=== PATIENT | male | born 1955 | race Caucasian/White ===

== ENCOUNTER → 2016-10-21 | Outpatient (CLI) | payer OTHER ==
--- NOTE | 2016-10-21 07:59 | US ---
EXAMINATION TYPE: US abdomen complete DATE OF EXAM: 10/21/2016 COMPARISON: CT abdomen and pelvis July 16, 2009 CLINICAL HISTORY: R10.9 Abd Pain. EXAM MEASUREMENTS: Liver Length: 14.1 cm Gallbladder Wall: 0.3 cm CBD: 0.3 cm Spleen: 14.9 cm Right Kidney: 10.0 x 5.7 x 4.9 cm Left Kidney: 11.2 x 5.9 x 5.1 cm Patient had somewhat large abdomen Pancreas: partially obscured by bowel gas Liver: Increased attenuation Gallbladder: wnl Evidence for sonographic Hedrick's sign: No CBD: wnl Spleen: enlarged Right Kidney: No hydronephrosis or masses seen Left Kidney: No hydronephrosis or masses seen Upper IVC: wnl Abd Aorta: mid and bifurcation obscured by overlying bowel gas, visualized portions within normal li mits The visualized liver is heterogeneously hyperechoic. Evaluation for focal masses is suboptimal due to the heterogeneity. The intrahepatic portion of the IVC and visualized abdominal aorta are within nor mal limits. There is no evidence of cholelithiasis. Common bile duct is unremarkable. The visualiz ed portions of the pancreas are homogenous. The spleen is enlarged at 14.3 cm on long axis, no worri some focal intrasplenic mass is noted. Kidneys are symmetric and free of hydronephrosis. No suspici ous renal lesions are seen. Technologist lagos 1 cm oval exophytic lesion too small to further charac terize lower pole level left kidney probable simple cyst. Right-sided renal calculi on prior CT are n ot clearly seen on ultrasound images saved. IMPRESSION: 1. No suspicious acute finding is seen to account for patient's symptoms. 2. Heterogeneity of liver could reflect diffuse fatty infiltration or underlying hepatocellular disea se. Splenomegaly is noted. Imaging guided random biopsy for tissue analysis can be performed if clinton ed.
== END | disposition home or self-care (01) ==
LOC: RADUSWWP 06:59
PROVIDERS: ATTEND Family Medicine
DX: K76.89 Other specified diseases of liver (principal); R16.1 Splenomegaly, not elsewhere classified
CPT/HCPCS: 76700

== ENCOUNTER → 2021-05-14 | Outpatient (CLI) | payer MEDICARE ==
--- NOTE | 2021-05-14 09:56 | NM ---
Nuclear medicine hepatobiliary scan. HISTORY: Pain. DOSAGE: The patient received 8 ounces of ensure plus and 5.2 mCi of Technetium 99m Choletec. FINDINGS: There is normal hepatic extraction. The gallbladder is seen by 20 minutes. There is bilia ry to bowel clearance is not seen by 60 minutes which is a nonspecific. Ejection fraction is 86%. IMPRESSION: 1. Ejection fraction 86% can occasionally be seen with hyperdynamic gallbladder correlate clinically. 2. No diagnostic evidence of cholecystitis
== END | disposition home or self-care (01) ==
LOC: RADNMMAIN 07:04
PROVIDERS: ATTEND Family Medicine
DX: R10.9 Unspecified abdominal pain (principal)
CPT/HCPCS: 78226; A9537

== ENCOUNTER 2021-07-03 11:46 | Day surgery (SDC) | payer MEDICARE ==
[2021-06-30 10:05] VITALS: BMI 33.2
[~2021-07-03 11:46] MED LIST: DEXAMETHASONE SOD PHOSPHATE 4 MG/ML 1 ML VIAL IV ONE; HEPARIN SODIUM,PORCINE/PF 5,000 UNIT/0.5 ML SYRINGE SQ PRN; HYDROmorphone 0.5 MG/0.5 ML SYRINGE IVP PRN; LIDOCAINE 1% (10MG/ML) FOR IV START INTRADERMA PRN; MIDAZOLAM 2 MG/2 ML VIAL IV PRN; ONDANSETRON 4 MG/2 ML VIAL IVP ONE
[2021-07-03] MEDS: LACTATED RINGERS 1,000 ML IV SCH ×2 (12:05→14:33)
[2021-07-03] MEDS ORDERED: CLINDAMYCIN 600 MG/50 ML-D5W 600 MG in DEXTROSE/WATER 1 50ML.BAG IVPB STA (12:23)
[2021-07-03] MEDS ORDERED: LIDOCAINE 1% INJ 10MG/ML (20 ML MDV) ONE (12:35)
[2021-07-03] MEDS ORDERED: PROPOFOL 10 MG/ML 20 ML VIAL IV ONE (12:35)
[2021-07-03] MEDS ORDERED: fentaNYL (PF) 50 MCG/ML 2 ML AMP ONE (12:35)
[2021-07-03] MEDS ORDERED: SUCCINYLCHOLINE CHLORIDE 100 MG/5 ML SYR IV ONE (12:35)
[2021-07-03] MEDS ORDERED: HYDROmorphone (PF) 1 MG/ML ONE (12:35)
[2021-07-03] MEDS ORDERED: ROCURONIUM 10 MG/ML (5 ML VIAL) IV ONE (12:35)
[2021-07-03] MEDS ORDERED: GLYCOPYRROLATE 0.2 MG/ML 2 ML VIAL ONE (12:35)
[2021-07-03] MEDS ORDERED: MIDAZOLAM 2 MG/2 ML VIAL ONE (12:35)
[2021-07-03] MEDS ORDERED: SUGAMMADEX SODIUM 200 MG/2 ML SDV IV ONE (12:35)
[2021-07-03] MEDS ORDERED: NEOSTIGMINE 1 MG/ML 10 ML VIAL ONE (12:35)
[2021-07-03] MEDS ORDERED: BUPIVACAIN-EPI 0.25%-1:200,000 30 ML VIAL SQ ONE (13:01)
[2021-07-03 13:10] LABS: Basophils # (A) 0.1 k/uL (0-0.2); Basophils % (A) 1 %; Eosinophils # (A) 0.2 k/uL (0-0.7); Eosinophils % (A) 4 %; HCT 48.1 % (39.0-53.0); HGB 16.9 gm/dL (13.0-17.5); Lymphocytes # (A) 1.4 k/uL (1.0-4.8); Lymphocytes % (A) 23 %; MCV 97.2 fL (80.0-100.0); Mean Platelet Volume 7.1; Monocytes # (A) 0.4 k/uL (0-1.0); Monocytes % (A) 6 %; Neutrophils % (A) 64 %; Platelet Count 210 k/uL (150-450); RBC 4.95 m/uL (4.30-5.90); WBC 6.2 k/uL (3.8-10.6)
--- NOTE | 2021-07-03 13:57 | P.OP ---
Date of Procedure: 07/03/21 Preoperative Diagnosis: Biliary dyskinesia Postoperative Diagnosis: Biliary dyskinesia Procedure(s) Performed: Robotic cholecystectomy Anesthesia: DIPAK Surgeon: Vernóica Miranda Pathology: other (Gallbladder) Condition: stable Disposition: same day Indications for Procedure: 66-year-old male with history of epigastric and right upper quadrant presented to the surgical clinic after workup. He was found to have biliary dyskinesia. Patient has opted for cholecystectomy secondary to this diagnosis. Risks, benefits and alternatives were provided to the patient. He did provide consent. Operative Findings: Gallbladder with multiple peritoneal and fatty adhesions Description of Procedure: The patient was brought into the operating suite and placed in supine position on the operating table. Sedation was provided by anesthesia and the patient underwent endotracheal intubation. He was then prepped and draped in regular sterile fashion. Infraumbilical incision was made and dissection was carried to the fascia. The fascia was incised and an 8 mm trocar was placed. Pneumoperitoneum was achieved. 2 additional 8 mm trochars were placed in the right lower quadrant and was placed in the left lower quadrant. The robot was undocked. The gallbladder was grasped and retracted superiorly and laterally. The gallbladder was noted to have multiple peritoneal and omental adhesions. These were dissected free both bluntly and with cautery. Dissection was carried around the infundibulum and the cystic duct was isolated. It was then skeletonized and 2 clips were placed proximally and one was placed distally. The cystic duct was ligated. Similarly, the cystic artery was skeletonized. 2 clips were placed proximally one was placed distally and the cystic artery was ligated. Cautery was then used to dissect the gallbladder from the gallbladder fossa on the liver bed. Hemostasis was noted to be maintained. The gallbladder was then placed in an Endo Catch bag and removed from the abdomen from the infra umbilical incision site. Irrigation was placed in the right upper quadrant and suctioned. No evidence of any further bleeding or any bile drainage. The infraumbilical fascial site was closed using 0 Vicryl suture direct visualiz ation using a Neil Louie device. All ports removed from the abdomen pneumoperitoneum was evacuated. All skin incision sites were closed with 4-0 Vicryl subcuticular suture. Sterile dressing was applied. The patient was awakened in the operating suite and taken to postanesthesia care unit in stable condition.
[2021-07-03 14:01] VITALS: TEMP 97.1
[2021-07-03] MEDS ORDERED: KETOROLAC 15 MG/ML 1 ML VIAL IVP ONE (14:11)
[2021-07-03 15:25] VITALS: BP 148/87; PULSE 78; RESP 18
== END 2021-07-03 16:10 | disposition home or self-care (01) ==
LOC: OR 11:46
PROVIDERS: ATTEND Surgery
DX: K82.8 Other specified diseases of gallbladder (principal); I10 Essential (primary) hypertension; M10.9 Gout, unspecified; M19.90 Unspecified osteoarthritis, unspecified site; Z79.899 Other long term (current) drug therapy; Z88.0 Allergy status to penicillin; Z87.442 Personal history of urinary calculi
CPT/HCPCS: 47600; S2900; 85025; 88304

== ENCOUNTER → 2022-08-18 | Outpatient (CLI) | payer MEDICARE ==
--- NOTE | 2022-08-19 08:14 | CT ---
EXAMINATION TYPE: CT abdomen pelvis w con DATE OF EXAM: 08/18/2022 COMPARISON: 07/16/2009 HISTORY: Abd pain, LT side pain, diarrhea CT DLP: 1607.10 mGycm CONTRAST: CT scan of the abdomen and pelvis is performed with Oral Contrast and with IV Contrast, patient injec lino with 100 mL of Isovue 300. FINDINGS: LUNG BASES-: No visible nodule. No infiltrate. LIVER/GB: The gallbladder surgically absent. No space occupying hepatic lesion. Biliary tree is of normal caliber. PANCREAS: No inflammation. No distinct mass. SPLEEN: No splenic enlargement. No lesion seen. ADRENALS: No nodule. No thickening. KIDNEYS/BLADDER: No hydronephrosis. No nephrolithiasis. No distinct renal mass. Urinary bladder g rossly unremarkable. BOWEL: Normal appendix. Normal bowel caliber. No inflammation. Sigmoid diverticulosis without diver ticulitis. GENITAL ORGANS: No gross abnormality. LYMPH NODES: No greater than 1cm abdominal or pelvic lymph nodes are appreciated. AORTA: No significant abnormality. OSSEOUS STRUCTURES: Moderate to severe multilevel degenerative disc space narrowing. OTHER: No significant additional abnormality is seen. IMPRESSION: 1. No significant abnormality to account for patient's symptoms.
== END | disposition home or self-care (01) ==
LOC: RADCTMAIN 13:05
PROVIDERS: ATTEND Family Medicine
DX: K57.90 Diverticulosis of intestine, part unspecified, without perforation or abscess without bleeding (principal)
CPT/HCPCS: 82565; 84520; 74177; 36415; Q9967

== ENCOUNTER → 2022-11-18 | Outpatient (CLI) | payer MEDICARE | END | disposition home or self-care (01) | LOC: LABWHC1 09:19 | PROVIDERS: ATTEND Internal Medicine Gastroenterology | DX: K58.0 Irritable bowel syndrome with diarrhea (principal) | CPT/HCPCS: 36415; 82784; 83516 ==